=== PATIENT | female | born 1990 | race Caucasian/White ===

== ENCOUNTER 2023-12-10 12:44 | Outpatient (REF) | payer OTHER, SELFPAY ==
--- NOTE | 2023-12-10 12:55 | EMG_ITS ---
Chief complaint: Left arm and hand pain and paresthesia Reason for referral: Evaluate for cervical radiculopathy, median neuropathy or ulnar neuropathy Referred by: Dr. Deshawn Sepulveda Procedure done: Left upper extremity NCS/EMG Precautions and/or limitations: None The limb temperature was monitored continuously and remained between 32-36 degrees C during the performance of the NCS. Nerve Conduction Studies Anti Sensory Summary Table ?Stim Site NR Onset (ms) Norm Onset (ms) Peak (ms) Norm Peak (ms) O-P Amp (?V) Norm O-P Amp Site1 Site2 Delta-0 (ms) Dist (cm) Oseas (m/s) Norm Oseas (m/s) Left Lat Ante Brach Cutan Anti Sensory (Lat Forearm) Lat Biceps ? 0.6 1.0 1.9 Lat Biceps Lat Forearm 0.6 0.0 Left Med Ante Brach Cutan Anti Sensory (Med Forearm) Elbow ? 0.3 0.5 1.5 Elbow Med Forearm 0.3 0.0 Left Median Anti Sensory (2nd Digit) Wrist ? 2.7 3.4 <3.6 22.0 >10 Wrist 2nd Digit 2.7 14.0 52 Left Radial Anti Sensory (Thumb) Forearm ? 1.7 2.3 <3.1 20.6 Forearm Thumb 1.7 0.0 Left Ulnar Anti Sensory (5th Digit) Wrist ? 2.3 3.1 <3.7 41.8 >15.0 Wrist 5th Digit 2.3 14.0 61 Motor Summary Table ?Stim Site NR Onset (ms) Norm Onset (ms) O-P Amp (mV) Norm O-P Amp iAmp (mV) Amp (1st) (%) Site1 Site2 Delta-0 (ms) Dist (cm) Oseas (m/s) Norm Oseas (m/s) Left Median Motor (Abd Poll Brev) Wrist ? 3.4 <3.9 8.9 >4.5 10.5 100.0 Elbow Wrist 3.2 18.5 58 >45 Elbow ? 6.6 8.2 9.5 92.1 Left Ulnar Motor (Abd Dig Minimi) Wrist ? 2.9 <3.0 10.2 >5 12.1 100.0 B Elbow Wrist 2.7 18.0 67 >45 B Elbow ? 5.6 10.3 12.3 101.0 A Elbow B Elbow 1.4 10.0 71 >45 A Elbow ? 7.0 10.3 12.4 101.0 EMG ?Side Muscle Nerve Root Ins Act Fibs Psw Amp Dur Poly Recrt Int Pat Comment Left 1stDorInt Ulnar C8-T1 Nml Nml Nml Nml Nml 0 Nml Complete Left FlexCarRad Median C6-7 Nml Nml Nml Nml Nml 0 Nml Complete Left Biceps Musculocut C5-6 Nml Nml Nml Nml Nml 0 Nml Complete Left Triceps Radial C6-7-8 Nml Nml Nml Nml Nml 0 Nml Complete Left Deltoid Axillary C5-6 Nml Nml Nml Nml Nml 0 Nml Complete FINDINGS: All motor and sensory nerves tested, including MAC and LAC, showed normal latencies, amplitudes and conduction velocities. Concentric needle EMG was performed in selected muscles of the left upper extremity. Study did not reveal signs of electric abnormalities as shown in the table below. IMPRESSION: 1. This is a normal study. 2. There is no electrodiagnostic evidence for median neuropathy, ulnar neuropathy, brachial plexopathy, or cervical radiculopathy. Thank you for your kind referral. Nabila Grewal MD, MARCELO Board Certified, [place] [employer] (ABPMR) Board Certified, [place] [employer] Electro[employer] (ABEM) CODIN 25635 x 2 MTDD
== END 2023-12-10 12:45 | disposition home or self-care (01) ==
LOC: HO.NEURO 12:44
PROVIDERS: Visit Provider Orthopaedic Surgery Hand Surgery
DX: M79.622 Pain in left upper arm (principal)
CPT/HCPCS: 95886; 95910

== ENCOUNTER → 2023-12-10 12:55 | Outpatient (BNV) | payer OTHER, SELFPAY | PROVIDERS: Visit Provider Physical Medicine & Rehabilitation | DX: M79.642 Pain in left hand (principal); M79.602 Pain in left arm; R20.2 Paresthesia of skin | CPT/HCPCS: 95886; 95910 ==